=== PATIENT | female | born 1955 | race Caucasian/White ===

== ENCOUNTER 2024-10-12 06:59 | Day surgery (SDC) | payer MEDICARE, MEDICAID ==
--- NOTE | 2024-10-05 15:08 | ELECTROCARDIOGRAPH REPORT ---
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 SIERRA Parks Measurements Intervals [place] Rate: 60 P: 53 [place]: 187 QRS: 62 QRSD: 114 T: 72 QT: 442 QTc: 442 Interpretive Statements Sinus rhythm Borderline intraventricular conduction delay Electronically Signed On 10-05-2024 19:06:[address] SIERRA Parks Please click the below link to view image of tracing.
[2024-10-05 15:24] LABS: BASOPHILS # (AUTO) 0.1 X10'3 (0-0.2); EOSINOPHILS # (AUTO) 0.1 X10'3 (0-0.9); EOSINOPHILS % (AUTO) 1.1 % (0-6); LYMPHOCYTES # (AUTO) 1.8 X10'3 (1.1-4.8); LYMPHOCYTES % (AUTO) 31.1 % (21-51); MEAN CORPUSCULAR HGB CONC 33.4 g/dL (33.0-36.5); MEAN CORPUSCULAR VOLUME 89.8 FL (78-98); MEAN PLATELET VOLUME 8.7 FL (7.4-10.4); MONOCYTES # (AUTO) 0.5 X10'3 (0-0.9); MONOCYTES % (AUTO) 8.8 % (2-12); NEUTROPHILS # (AUTO) 3.3 X10'3 (1.8-7.7); PRE OP HEMATOCRIT 41.2 % (35.0-45.0); PRE OP HEMOGLOBIN 13.8 g/dL (12.0-16.0); PRE OP PLATELET COUNT 168 X10'3 (140-440); PRE OP WHITE BLOOD COUNT 5.8 10'3 (4.8-10.8); RED BLOOD COUNT 4.59 X10'6 (4.20-5.60); RED CELL DISTRIBUTION WIDTH 13.1 % (11.5-14.5)
[2024-10-05 15:38] LABS: ALBUMIN 3.8 G/DL (3.4-5.0); ALBUMIN/GLOBULIN RATIO 1.2 (1.1-1.5); ALKALINE PHOSPHATASE 86 IU/L (46-116); BLOOD UREA NITROGEN 14 MG/DL (7-18); CALCIUM 9.1 MG/DL (8.5-10.1); CHLORIDE 98 MMOL/L (99-107); CREATININE 0.61 MG/DL (0.40-0.90); PRE OP ALT 16 U/L (30-65); PRE OP ANION GAP 8 (8-16); PRE OP AST 10 U/L (10-37); PRE OP BILIRUB, TOTAL 0.5 MG/DL (0.0-1.0); PRE OP GLUCOSE 102 MG/DL (70-104); PRE OP POTASSIUM 3.5 MMOL/L (3.4-5.1); PRE OP SODIUM 138 MMOL/L (135-145); TOTAL CARBON DIOXIDE 32.4 MMOL/L (24-32); TOTAL PROTEIN 7.1 G/DL (6.4-8.2); eGFR > 90 ML/MIN
--- NOTE | 2024-10-06 06:29 | RADIOLOGY REPORT ---
Procedure: CT CT CHEST ION Reason for study/Clinical History: SWELLING;MASS;LUMP; Comparison Study: None TECHNIQUE: Multidetector CT of the chest was performed from the lung apices to the upper abdomen with out the use of intravenous contract. Axial, coronal and sagittal multiplanar reformats were performed . Radiation Dose Information: CT Dose: CTDI volume is 12.4 mGy. Dose-length product is 454.9 mGy*cm The dose indicators for CT are the volume Computed Tomography (CT) Dose Index (CTDIvol) and the Dose Length Product (DLP), and are measured in units of mGy and mGy-cm, respectively. These indicators are not patient dose, but values generated from the CT scanner acquisition factors. The report includes radiation exposure data for exposures received during this examination. FINDINGS: Lower neck: Unremarkable. Lungs: 2.8 cm nodule in the medial left upper lobe abutting the anterior mediastinum. Heart/Vascular Structures: Cardiomegaly. Coronary artery calcifications. Vascular calcifications of t he aorta. Lymph Nodes: No adenopathy Pleura: No pleural effusion or significant pneumothorax. Musculoskeletal: No acute osseous abnormality. Degenerative changes of the spine. Partially imaged c ervical spine hardware. Partially imaged cervical spinal stimulator device in-situ. Soft tissues: Normal. Upper abdomen: Limited portions of the upper abdomen are unremarkable. IMPRESSION: 2.8 cm nodule in the medial left upper lobe abutting the anterior mediastinum.
[2024-10-12] VITALS (9 sets, daily range): BP systolic 119–166; BP diastolic 45–78; PULSE 59–120; RESP 13–19; TEMP 98.6; O2SAT 92–97
[~2024-10-12] VITALS: Ht 167.6 cm; Wt 95.4 kg
[~2024-10-12 06:59] MED LIST: ATOR20TA66 PO; BUPR150T8 PO; CLOP-32 PO; FURO-150 PO; GABA300C PO; HYDR-3686 PO; LISI10TA27 PO; METH-797 PO; MORP30TA60 PO; PARO30TA97 PO; POTA8TAB69 PO; VARE1TAB24 PO
[2024-10-12] MEDS ORDERED: proCHLORperazine 10 MG/2 ml inj IV PRN (07:35)
[2024-10-12] MEDS ORDERED: hydrALAZINE 20mg/ml inj. IV PRN (07:35)
[2024-10-12] MEDS ORDERED: ondansetron/PF 4mg/2ml inj IV PRN (07:35)
[2024-10-12] MEDS ORDERED: HYDROmorphone/PF 0.2 MG/ML SYRINGE IV PRN ×2 (07:35)
[2024-10-12] MEDS ORDERED: morphine 2 MG/ML inj. syringe IV PRN (07:35)
[2024-10-12] MEDS ORDERED: morphine 4 MG/ML inj SYRINge IV PRN (07:35)
[2024-10-12] MEDS ORDERED: ringers solution, lacted 1,000 ML IV SCH (07:35)
[2024-10-12] MEDS ORDERED: labetalol 20mg/4ml (5mg/ml) syringe IV PRN (07:35)
[2024-10-12] MEDS ORDERED: meperidine/PF 25mg/ml syringe IV PRN (07:35)
[2024-10-12] MEDS: famotidine 20mg tablet PO ONE (07:41)
[2024-10-12] MEDS: ringers solution, lacted 1,000 ML IV SCH (07:44)
[2024-10-12] MEDS ORDERED: fentaNYL/PF 50MCG/1 ML 2ML syringe ONE (09:40)
[2024-10-12] MEDS ORDERED: LIDOcaine 2% (20mg/ml) 5ml vial ONE (09:57)
[2024-10-12] MEDS ORDERED: dexamethasone sod phosphate 4mg/ml inj. ONE (09:57)
[2024-10-12] MEDS ORDERED: midazolam 1 mg/ML 2ml injection ONE (09:57)
[2024-10-12] MEDS ORDERED: rocuronium 10mg/ml inj IV ONE (09:57)
[2024-10-12] MEDS ORDERED: ondansetron/PF 4mg/2ml inj ONE (09:58)
[2024-10-12] MEDS ORDERED: propofol inj 20 ML IV ONE (09:58)
[2024-10-12] MEDS ORDERED: ePHEDrine 50MG/ML INJ. ONE (10:08)
[2024-10-12] MEDS ORDERED: neostigmine methylsulfate 1 MG/ML 10ml vial ONE (10:17)
[2024-10-12] MEDS ORDERED: glycopyrrolate 0.2mg/ml inj ONE (10:17)
[2024-10-12] MEDS: acetaminophen 1,000mg/100ml IV 100 ML IV PRN (10:44)
--- NOTE | 2024-10-12 11:02 | RADIOLOGY REPORT ---
EXAM: DI CHEST,SINGLE VIEW REASON FOR EXAM: R/o PNEUMOTHORAX TECHNIQUE: 1 view of the chest COMPARISON: None FINDINGS/IMPRESSION: LUNGS: No pleural effusion, consolidation, or pneumothorax MEDIASTINUM: Normal cardiac size BONES: No acute osseous abnormality . Thoracic epidural lead. ACDF. OTHER: None
--- NOTE | 2024-10-12 17:15 | OPERATIVE REPORT ---
DATE OF SURGERY: 10/12/2024 DICTATING PHYSICIAN: Nick Manuel MD PROCEDURE NOTE PROCEDURES: Bronchoscopy with robotic system and EBUS. INDICATIONS: The patient with a left upper lobe mass. DESCRIPTION OF PROCEDURE: The patient signed a consent after indications and potential complications were explained. We already had a plan with the robotic bronchoscopy system with virtual plan to get into the mass. The patient was intubated and sedated. Navigated a catheter into the mass with a guidewire and a camera. Left the catheter behind and put on a radial ultrasound and we obtained a signal that we were on the mass the first pass. We obtained multiple samples, about 5 different areas. Every time I switched places, I confirmed that I was on the mass. With the radial ultrasound, obtained multiple passes. The passes included transbronchial fine needle aspiration and transbronchial biopsies. After that, we switched over to the endobronchial ultrasound bronchoscope and there were some small paratracheal lymph nodes that sample we obtained, samples of 7, 10R and 10L. We also had obtained a BAL on the right upper lobe area. The patient tolerated the procedure well. There are no complications. Nick Manuel MD TID: [id number] RECEIPT: [id number] JOYCELYN/TUAN
--- NOTE | 2024-10-16 12:44 | PATHOLOGY REPORT ---
[facility] [address] [place] [address] NON-SPIRAL [facility] REPORT CaseNumber: [id number] Surgeon:Nick Manuel M.D. CLINICAL INFORMATION CLINICAL INFORMATION: Patient with 2 cm LOBO mass. DIAGNOSIS DIAGNOSIS: A.LUNG, LEFT UPPER LOBE; BIOPSY - ADENOCARCINOMA OF LUNG. - SEE COMMENT. DIAGNOSIS: B.LUNG, LEFT UPPER LOBE; FINE NEEDLE ASPIRATION - ADEQUATE FOR CYTOLOGIC EVALUATION. - ADENOCARCINOMA OF LUNG. - SEE COMMENT. DIAGNOSIS: C.LYMPH NODE, STATION 7, 10R, AND 10L; FINE NEEDLE - ADEQUATE FOR CYTOLOGIC EVALUATION. - NEGATIVE FOR MALIGNANCY. - RARE LYMPH NODE PARENCHYMA AND ABUNDANT RESPIRATORY PARENCHYMA INCLUDING FOCAL REACTIVE-APPEARING RESPIRATORY EPITHELIUM. COMMENT NOTE: As a part of intradepartmental business quality assurance analyst review, Dr. Homero Fritz has also reviewed this case (specimens A and B) and concurs. NOTE: As a part of intradepartmental business quality assurance analyst review, Dr. Homero Fritz has also reviewed this case (specimens A and B) and concurs. NOTE: As a part of intradepartmental business quality assurance analyst review, Dr. Homero Fritz has also reviewed this case (specimens A and B) and concurs. MICROSCOPIC DESCRIPTION A. LUNG, LEFT UPPER LOBE MICROSCOPIC DESCRIPTION: Microscopic examination is performed on one H&E stained slide. Present is mauro ng parenchyma including alveolar spaces and fibrovascular tissue. Within the lung parenchyma are sing le cells and aggregates of markedly atypical-appearing cells. These cells have eosinophilic to somewh at vacuolated-appearing cytoplasms. The nuclei of these cells are large, pleomorphic, somewhat irregu larly shaped, and occasionally have prominent nucleoli. Scattered mitotic figures are noted. Within t he background, there is a desmoplastic response and scattered mixed acute and chronic inflammation. D efinite lymphovascular invasion is not identified on the current specimen. Immunohistochemical stains are completed and reported below. TTF-1 ...... POSITIVE Napsin ..... POSITIVE P40 ........ FOCAL BACKGROUND POSITIVE CK5/6 ...... FOCAL BACKGROUND POSITIVE B. LUNG, LEFT UPPER LOBE MICROSCOPIC DESCRIPTION: Microscopic examination is performed on one Papanicolaou stained double cyto spin slide and one H&E stained cell block slide. The preparation is adequate for cytologic evaluation . Present is respiratory epithelium including single and aggregates of malignant cells. The malignant cells are large with large irregularly-shaped pleomorphic nuclei with sometimes prominent nucleoli. The cytoplasms have an eosinophilic appearance. A background desmoplastic response is present, as wel l as focal anthracotic pigment. C. LYMPH NODE, STATION 7, 10R, AND 10L MICROSCOPIC DESCRIPTION: Microscopic examination is performed on one Papanicolaou stained double cyto spin slide and one H&E stained cell block slide. The preparation is adequate for cytologic evaluation . Present is limited lymph node parenchyma including anthracotic pigment. There is respiratory parenc hyma also present including abundant respiratory epithelium and bronchial cartilage. The respiratory epithelium has defined cilia with focal reactive epithelial changes. Definite malignancy is not ident ified within the current specimen. (st) GROSS DESCRIPTION A. LUNG, LEFT UPPER LOBE GROSS DESCRIPTION: Received in a container of formalin labeled with the patient's name, number, and " LOBO BX "is a 0.5 x 0.3 x 0.1 cm aggregate of irregularly shaped pieces of johnson tissue submitted entire ly as A1.The time at which the specimen was removed was 1000. The time at which the specimen was plac ed in formalin was 1000. B. LUNG, LEFT UPPER LOBE GROSS DESCRIPTION: Received labeled with the patient's name, number, and "LOBO FNA" is a 12.5 mL bottl e of cloudy cytostat red. One double cytospin slide and one cell block are prepared. The cell block i s submitted as B1. The time at which the specimen is removed is 1000. The time at which the specime n is placed in formalin is 1625. (fc) C. LYMPH NODE, STATION 7, 10R, AND 10L GROSS DESCRIPTION: Received labeled with the patient's name, number, and "station #7, 10R, 10L" is a 12.5 mL bottle of slightly cloudy cytostat red. One double cytospin slide and one cell block are prep ared. The cell block is submitted as C1. The time at which the specimen is removed is 1012. The roger e at which the specimen is placed in formalin is 1630. (fc) Electronically signed by: Manuel Rossi D.O. 10/16/2024 12:03:00 PM
== END 2024-10-12 11:16 | disposition home or self-care (01) ==
LOC: PAS 06:59
PROVIDERS: ATTEND Internal Medicine Critical Care Medicine
DX: R91.8 Other nonspecific abnormal finding of lung field (principal); C34.12 Malignant neoplasm of upper lobe, left bronchus or lung; J44.9 Chronic obstructive pulmonary disease, unspecified; F41.9 Anxiety disorder, unspecified; F32.A Depression, unspecified; E78.5 Hyperlipidemia, unspecified; I10 Essential (primary) hypertension; G47.33 Obstructive sleep apnea (adult) (pediatric); Z98.890 Other specified postprocedural states; Z79.899 Other long term (current) drug therapy; Z90.49 Acquired absence of other specified parts of digestive tract; Z90.710 Acquired absence of both cervix and uterus; Z88.0 Allergy status to penicillin
CPT/HCPCS: 31624; 31627; 31628; 31653; 36415; 71045; 71250; 80053; 82948; 85025; 87015; 87070; 87116; 87206; 93005; A4618; J0131; J1100; J2003; J2250; J2405; J2704; J2710; J3010; J3490; J7120; Z7506; Z7512; Z7610; 31622; 31625; 31626; 31654

== ENCOUNTER 2024-12-22 13:30 | Emergency (ER) | payer MEDICARE, MEDICAID ==
[~2024-12-22] VITALS: Ht 167.6 cm; Wt 89.0 kg
[~2024-12-22 13:30] MED LIST changes: +ALBU8HFA INH
--- NOTE | 2024-12-22 14:55 | Physician Documentation ---
History of Present Illness ~ Chief Complaint: Wound Re-Check Stated Complaint: POST OP COMPLICATIONS Time Seen by MD: 14:43 Primary Medical Doctor: EDITH Mode of Arrival: EMS HPI 69-year-old female presents to the ED after having a recent lobectomy on the left long for previously discovered a mass per she is here in the ED mostly out of concerns of drainage from the surgical site. States that the fluid has been more than with the nurse indicated would be occurring. States that the color of the fluid is pinkish clear. She also states that her left breast has developed increased pain and swelling on december 14: obotic upper lobectomy and cryoablation for pain management. 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, 12/22/24) Scheduled Atorvastatin Calcium (LIPITOR tablet), 1 TAB PO QPM, (Reported) Bupropion HCl (Wellbutrin Sr), 1 TAB PO QAM, (Reported) Clopidogrel Bisulfate (Plavix), 1 TAB PO DAILY, (Reported) Gabapentin (Neurontin), 2 CAP PO BID, (Reported) Gabapentin (Neurontin), 1 CAP PO QNOON, (Reported) Lisinopril (Lisinopril), 1 TAB PO DAILY, (Reported) Methocarbamol (Methocarbamol), 1 TAB PO Q8H, (Reported) Morphine Sulfate (Ms Contin), 1 TAB PO Q8H, (Reported) Paroxetine HCl (Paxil), 1 TAB PO QPM, (Reported) Potassium Chloride (Klor-Con 8), 1 TAB PO DAILY, (Reported) Varenicline Tartrate (Varenicline Tartrate), 1 TAB PO Q12H, (Reported) Scheduled PRN Furosemide (Lasix), 1-4 TAB PO DAILY PRN for EDEMA, (Reported) Hydroxyzine Hcl (Atarax), 2 TAB PO HS PRN for anxiety, (Reported) albuterol inhaler (Pro-Air Inhaler), 2 PUFFS INH Q4HPRN PRN for wheezing, (Reported) Past Medical History Patient History: Patient reports no known family medical history. Physical Exam Vital Signs: Temperature: 98.4, Source: Oral, Heart Rate: 76, Respiratory Rate: 15, BP: 104/56, Pulse Oximetry: 94, Weight: 89.000 Oxygen Flow Rate: 2.0 Physical Exam General: Alert, no apparent distress. Respiratory: Lungs clear, no respiratory distress. Chest: No accessory muscle use. Cardiovascular: Regular rate and rhythm, no murmurs. Gastrointestinal: Soft, nontender, nondistended. Bowels sounds present. Extremities: Normal range of motion, no deformity. Neurologic: Oriented x4. Psychiatric: Normal mood and affect. Skin: Normal color, warm and dry. No edema, no ecchymosis. Progress Results/Orders Results/Orders Orders - BLAINE DAVIS PRINTER FLOOR COVERING ASSISTANT General Nursing Order (12/22/24 ) Vital Signs 12/22/24 12/22/24 12/22/24 12/22/24 13:42 13:58 14:00 14:06 Temp 98.4 Pulse 79 76 Resp 18 18 15 B/P (MAP) 92/55 104/56 (72) Pulse Ox 91 94 94 O2 Delivery Nasal Cannula* O2 Flow Rate 2.0 2 FiO2 28 12/22/24 12/22/24 12/22/24 14:30 15:00 15:30 Pulse 77 71 67 Resp 14 17 11 B/P (MAP) 144/52 (82) 116/51 (72) 118/60 (79) Pulse Ox 95 98 93 O2 Flow Rate 2.0 2.0 2.0 Laboratory Tests Test 12/22/24 15:06 White Blood Count 6.9 Red Blood Count 3.83 L Hemoglobin 11.7 L Hematocrit 34.5 L Mean Corpuscular Volume 90.0 Mean Corpuscular Hemoglobin 30.4 Mean Corpuscular Hemoglobin Concent 33.8 Red Cell Distribution Width 13.8 Platelet Count 272 Mean Platelet Volume 8.2 Neutrophils (%) (Auto) 61.7 Lymphocytes (%) (Auto) 28.5 Monocytes (%) (Auto) 7.2 Eosinophils (%) (Auto) 1.6 Basophils (%) (Auto) 1.0 Neutrophils # (Auto) 4.2 Lymphocytes # (Auto) 2.0 Monocytes # (Auto) 0.5 Eosinophils # (Auto) 0.1 Basophils # (Auto) 0.1 CBC Comment Sodium Level 139 Potassium Level 4.3 Chloride Level 103 Carbon Dioxide Level 32.2 H Anion Gap 4 L Blood Urea Nitrogen 13 Creatinine 0.75 Estimated GFR/1.73 m2 77 BUN/Creatinine Ratio 17.3 Glucose Level 92 Lactic Acid Level 0.7 Calcium Level 9.3 Albumin 3.6 Procalcitonin < 0.05 Chemistry Comments Medical Decision Making Findings Consulted with the on-call surgeon Dr. Ribera, I explained the current situation of the patient considering the amount of drainage from the site and the increased swelling of her left breast He agreed that based on the patient being hemodynamically stable and showing no signs of infection on that the amount of drainage is likely normal in the at the swollen with the breast tissue is likely also part of the healing process. Did place a ostomy collection device on the site for further evaluation by the patient's surgeon Differential Dx:Considerations: Include: Abscess, Cellulitis, Dressing change, Healing wound, Other Departure Disposition: 01 HOME / SELF CARE / HOMELESS Impression: Primary Impression: S/P lobectomy of lung Condition: Stable Discharge Instructions: Wound Closure Removal, Care After Additional Instructions: Make sure to follow up with your surgeon next week for further evaluation of your surgical site. monitor the drainage from the site via of the of colostomy device placed today Referrals: NO PRIMARY CARE PROVIDER (PCP) Education Educated: Patient Educated regarding: diagnosis Signature Scribe Signature: e Attestation: Scribed for Blaine Davis Canvass Manager by Blaine Zaidi NP . 12/22/24 15:48 BLAINE DAVIS NP Dec 22, 2024 14:55
[2024-12-22 15:17] LABS: MEAN PLATELET VOLUME 8.2 FL (7.4-10.4); RED CELL DISTRIBUTION WIDTH 13.8 % (11.5-14.5)
[2024-12-22 15:23] LABS: CREATININE 0.75 MG/DL (0.40-0.90); TOTAL CARBON DIOXIDE 32.2 MMOL/L (24-32); eCRCL 66 ML/MIN; eGFR 77 ML/MIN
--- NOTE | 2024-12-22 15:54 | RADIOLOGY REPORT ---
CHEST RADIOGRAPH Indication: SEROSANGUINOUS FLUID DRAINING FROM INCISION Technique: Single frontal view of the chest was obtained Comparison: DI CHEST,SINGLE VIEW on DOS: 12/19/24, DI CHEST,SINGLE VIEW on DOS: 12/18/24, DI CHEST,SINGLE VIEW on DOS: 12/17/24 FINDINGS: Lines and Tubes: Removal of the left-sided chest tube. Lungs: There is about 34% left-sided pneumothorax. Left lower lung zone opacity with obscuration of t he left hemidiaphragm which may be from pleural effusion with associated atelectasis / pneumonia. Cardiomediastinal contours: Unremarkable Bones: No acute osseous abnormality. Spinal stimulator wires are noted terminating over The midline m idthorax. Cervical fixation hardware is noted. Moderate degenerative changes of bilateral AC joints. Left chest wall subcutaneous emphysema is noted. IMPRESSION: Interval removal of the left-sided chest tube with interval development of about 34% left-sided pneum othorax. Small left-sided pleural effusion with associated atelectasis /pneumonia. Critical Result: Left-sided pneumothorax Findings discussed with LUIS EDUARDO DAVIS at 12/22/2024 03:51 PM, and acknowledged receipt and understandi ng of the findings. ..
[2024-12-22 16:37] VITALS: BP 167/77; PULSE 78; RESP 16; TEMP 98.4; O2SAT 97
== END 2024-12-22 16:48 | disposition home or self-care (01) ==
LOC: ER 13:30
DX: Z90.2 Acquired absence of lung [part of] (principal); Z88.2 Allergy status to sulfonamides; Z88.0 Allergy status to penicillin; Z98.890 Other specified postprocedural states; Z79.899 Other long term (current) drug therapy
CPT/HCPCS: 36415; 71045; 80048; 83605; 84145; 85025; 87040; 99285; A4421; A4615; A6212; A6253